=== PATIENT | male | born 1985 | race African-American/Black ===

== ENCOUNTER 2016-04-25 | Emergency (ER) | payer BC ==
--- NOTE | 2016-04-25 08:45 | ED ---
General Adult HPI - General Chief complaint: Dental/Oral Stated complaint: Neck pain Time Seen by Provider: 04/25/16 08:34 Source: patient, RN notes reviewed Mode of arrival: ambulatory Limitations: no limitations - History of Present Illness Initial comments: Patient is a 30-year-old male who presents emergency room today with chief complaint of increased dental pain. He does admit that he's had a fractured tooth for several months. He states that yesterday he was eating another piece broke off. He states she's noticed increased swelling to the right side of his lower jaw and neck area. Does admit that he's had a funny taste in his mouth at times. Patient also admits that his noticed that he's had some increased crusting and drainage coming from his eyes bilaterally in the morning. He denies any other complaints or associated symptoms. Patient denies any recent fever, chills, shortness of breath, chest pain, back pain, abdominal pain, nausea or vomiting, numbness or tingling, dysuria or hematuria, constipation or diarrhea, headaches or visual changes, or any other complaints. - Related Data Home Medications Medication Instructions Recorded Confirmed D-Methorphan/Acetamin/Doxylamn 2 cap PO Q6H PRN 02/25/16 02/25/16 [Vicks Nyquil Liquicaps] D-Methorphan/PE/Acetaminophen 2 cap PO Q6H PRN 02/25/16 02/25/16 [Vicks Dayquil Liquicaps] Previous Rx's Medication Instructions Recorded Albuterol Inhaler [Ventolin Hfa 1 - 2 puff INHALATION Q4-6H PRN #1 02/25/16 Inhaler] inhaler predniSONE 40 mg PO DAILY 5 Days 02/25/16 Amoxicillin/Potassium Clav 1 each PO Q12HR #20 tab 04/25/16 [Augmentin 875-125 Tablet] Tobramycin 0.3% Ophth Soln [Tobrex 1 - 2 drop BOTH EYES QID 7 Days 04/25/16 0.3% Ophth Soln] Allergies Allergy/AdvReac Type Severity Reaction Status Date / Time No Known Allergies Allergy Verified 02/25/16 08:09 Review of Systems ROS Statement: Those systems with pertinent positive or pertinent negative responses have been documented in the HPI. ROS Other: All systems not noted in ROS Statement are negative. Past Medical History Past Medical History: Asthma History of Any Multi-Drug Resistant Organisms: MRSA Date of last positivie culture/infection: 2014 MDRO Source:: leg Past Surgical History: Back Surgery Past Psychological History: No Psychological Hx Reported Smoking Status: Current every day smoker Past Alcohol Use History: Occasional Past Drug Use History: None Reported General Exam - General Exam Comments Initial Comments: General: The patient is awake and alert, in no distress, and does not appear acutely ill. Eye: Pupils are equal, round and reactive to light, extra-ocular movements are intact. No nystagmus. There is normal conjunctiva bilaterally. No signs of icterus. Ears, nose, mouth and throat: There are moist mucous membranes and no oral lesions. Patient tender to palpation over the upper gum line over tooth #3 and 4. No sign of abscess. Uvula midline. Patient swallows without difficult to. Neck: The neck is supple, there is no tenderness or JVD. Cardiovascular: There is a regular rate and rhythm. No murmur, rub or gallop is appreciated. Respiratory: Lungs are clear to auscultation, respirations are non-labored, breath sounds are equal. No wheezes, stridor, rales, or rhonchi. Musculoskeletal: Normal ROM, no tenderness. Strength 5/5. Sensation intact. Pulses equal bilaterally 2+. Neurological: A&O x 3. CN II-XII intact, There are no obvious motor or sensory deficits. Coordination appears grossly intact. Speech is normal. Skin: Skin is warm and dry and no rashes or lesions are noted. Psychiatric: Cooperative, appropriate mood & affect, normal judgment. Limitations: no limitations Course Vital Signs 04/25/16 08:35 Temperature 98.1 F Pulse Rate 75 Respiratory 20 Rate Blood Pressure 140/89 O2 Sat by Pulse 99 Oximetry Medical Decision Making - Medical Decision Making Patient advised use antibiotics follow-up dentist over the next 2 days. Patient advised to use antibiotic drops to his eyes if symptoms become more red irritated. At this time no sign of conjunctivitis. Patient is advised return here to emergency room if swelling to the jaw and neck becomes worse or for any fevers or any other concerns. Disposition Clinical Impression: Pain, dental Disposition: HOME SELF-CARE Condition: Good Instructions: Toothache (ED) Additional Instructions: Please use medication as discussed. Please follow-up with family doctor in the next 2 days of symptoms have not improved. Please follow up with dentist as discussed over the next week. Please return to emergency room if the symptoms increase or worsen or for any other concerns. Prescriptions: Amoxicillin/Potassium Clav [Augmentin 875-125 Tablet] 1 each PO Q12HR #20 tab Tobramycin 0.3% Ophth Soln [Tobrex 0.3% Ophth Soln] 1 - 2 drop BOTH EYES QID 7 Days Referrals: None,Stated [Primary Care Provider] - 1-2 days Anthony Martin MD [STAFF PHYSICIAN] - 1-2 days Time of Disposition: 08:44
== END 2016-04-25 09:10 | disposition home or self-care (01) ==
CPT/HCPCS: 99283

== ENCOUNTER 2016-10-16 18:38 | Emergency (ER) | payer BC, OTHER ==
[2016-10-16 19:07] VITALS: BP 135/58; PULSE 90; RESP 17; TEMP 98.5
[2016-10-16] MEDS ORDERED: ACETAMINOPHEN TAB 325 MG TAB PO STA (19:18)
--- NOTE | 2016-10-16 19:27 | ED ---
ENT HPI - General Chief complaint: ENT Stated complaint: sick Time Seen by Provider: 10/16/16 19:09 Source: patient Mode of arrival: ambulatory Limitations: no limitations - History of Present Illness Initial comments: Patient is a 31-year-old male presenting to the emergency department with chief complaint of "just not feeling good." Patient states that he was at work and at 4 PM this afternoon he developed a headache, had a sore throat, and developed some chills. Patient states he feels very weak. In addition, patient states he got bit by a bug in the back of his neck last week and has a bump. Patient states the bug stung him and he flicked it with his hand. Patient states until 4 PM today he was feeling fine. Patient denies recent antibiotic use for last 30 days. MD complaint: sore throat Onset/Timin -: hour(s) Severity: moderate Severity scale (1-10): 7 Quality: burning Consistency: constant Improves with: none Worsens with: swallowing Associated Symptoms: pain with swallowing - Related Data Home Medications Medication Instructions Recorded Confirmed D-Methorphan/PE/Acetaminophen 2 cap PO Q6H PRN 02/25/16 02/25/16 [Vicks Dayquil Liquicaps] Dm/Acetaminophen/Doxylamine [Vicks 2 cap PO Q6H PRN 02/25/16 02/25/16 Nyquil Liquicaps] Previous Rx's Medication Instructions Recorded Albuterol Inhaler [Ventolin Hfa 1 - 2 puff INHALATION Q4-6H PRN #1 02/25/16 Inhaler] inhaler predniSONE 40 mg PO DAILY 5 Days 02/25/16 Amoxicillin/Potassium Clav 1 each PO Q12HR #20 tab 04/25/16 [Augmentin 875-125 Tablet] Tobramycin 0.3% Ophth Soln [Tobrex 1 - 2 drop BOTH EYES QID 7 Days 04/25/16 0.3% Ophth Soln] Allergies Allergy/AdvReac Type Severity Reaction Status Date / Time No Known Allergies Allergy Verified 02/25/16 08:09 Review of Systems ROS Statement: Those systems with pertinent positive or pertinent negative responses have been documented in the HPI. ROS Other: All systems not noted in ROS Statement are negative. Past Medical History Past Medical History: Asthma History of Any Multi-Drug Resistant Organisms: MRSA Date of last positivie culture/infection: 2014 MDRO Source:: leg Past Surgical History: Back Surgery Past Psychological History: No Psychological Hx Reported Smoking Status: Current every day smoker Past Alcohol Use History: Occasional Past Drug Use History: None Reported General Exam Limitations: no limitations General appearance: alert, in no apparent distress Head exam: Present: atraumatic, normocephalic, normal inspection Eye exam: Present: normal appearance. Absent: PERRL, scleral icterus, conjunctival injection, periorbital swelling, periorbital tenderness ENT exam: Present: mucous membranes moist, TM's normal bilaterally, normal external ear exam Expanded Throat exam: other (Posterior pharynx erythema). negative: tonsillar erythema, tonsillomegaly, tonsillar exudate, R peritonsillar mass, L peritonsillar mass Neck exam: Present: normal inspection, tenderness, full ROM, lymphadenopathy ( Cervical) Respiratory exam: Present: normal lung sounds bilaterally. Absent: respiratory distress, wheezes, rales, rhonchi, stridor, chest wall tenderness, accessory muscle use Cardiovascular Exam: Present: regular rate, normal rhythm, normal heart sounds. Absent: systolic murmur GI/Abdominal exam: Present: soft, normal bowel sounds. Absent: tenderness Extremities exam: Present: normal inspection, full ROM, normal capillary refill. Absent: tenderness Back exam: Present: normal inspection, full ROM. Absent: tenderness, CVA tenderness (R), CVA tenderness (L), paraspinal tenderness, vertebral tenderness , rash noted Neurological exam: Present: alert, oriented X3, normal gait, other (No focal deficits). Absent: motor sensory deficit Psychiatric exam: Present: normal affect, normal mood Skin exam: Present: warm, dry, intact, normal color, other (No palpable abscess noted to posterior neck and no erythema noted) Course Vital Signs 10/16/16 10/16/16 19:04 20:05 Temperature 98.5 F 98.5 F Pulse Rate 90 90 Respiratory 17 17 Rate Blood Pressure 135/58 135/58 O2 Sat by Pulse 99 99 Oximetry Medical Decision Making - Medical Decision Making Patient is a 31-year-old male presenting with chief complaint of sore throat suspect secondary to viral pharyngitis. Strep screen negative. Patient instructed to continue soft foods and cold foods for comfort. Patient instructed to continue Tylenol or Motrin for pain. Patient instructed to return to the emergency department with any new or worsening symptoms. Patient agrees to treatment plan. Discharge instructions and return parameters reviewed. - Lab Data Lab Results 10/16/16 Range/Units 19:10 Group A Strep Rapid Negative (Negative) Disposition Clinical Impression: Pharyngitis Disposition: HOME SELF-CARE Condition: Good Instructions: Pharyngitis (ED) Additional Instructions: Continue soft foods and cold foods for throat comfort. Continue Tylenol or Motrin for pain. May use throat lozenges. Please follow-up with primary care physician as directed. Please return to the emergency department with any new or worsening symptoms. Referrals: None,Stated [Primary Care Provider] - 1-2 days Time of Disposition: 20:00
== END 2016-10-16 20:04 | disposition home or self-care (01) ==
LOC: EC 18:38
DX: J02.9 Acute pharyngitis, unspecified (principal); Z86.14 Personal history of Methicillin resistant Staphylococcus aureus infection; F17.200 Nicotine dependence, unspecified, uncomplicated
CPT/HCPCS: 87081; 87430; 99283

== ENCOUNTER 2017-01-11 07:52 | Emergency (ER) | payer OTHER ==
[2017-01-11 07:57] VITALS: BP 138/87; PULSE 90; RESP 16; TEMP 97.4
--- NOTE | 2017-01-11 08:11 | ED ---
General Adult HPI - General Chief complaint: Dental/Oral Stated complaint: DENTAL PAIN Time Seen by Provider: 01/11/17 07:57 Source: patient, RN notes reviewed Mode of arrival: ambulatory Limitations: no limitations - History of Present Illness Initial comments: 31-year-old male presents emergency Department chief complaint of dental pain. Patient states he's had this for the past 2 days he has not taken any medication for. He called her dentist and was informed to get up on antibiotics and he'll be following up within this week. Patient states he has felt feverish but he has not taken a temperature. Patient states that he has no pain radiating into the neck and there is no difficulty opening or closing the mouth. Patient denies any pus or drainage from the area. Patient was concerned due to his comes complaint of pains without that he should be evaluated in he needs antibiotics. Patient denies any recent shortness of breath, chest pain, back pain, abdominal pain, nausea vomiting, numbness or tingling, dysuria or hematuria, constipation or diarrhea, headaches or visual changes, or any other current symptoms. - Related Data Home Medications Medication Instructions Recorded Confirmed D-Methorphan/PE/Acetaminophen 2 cap PO Q6H PRN 02/25/16 02/25/16 [Vicks Dayquil Liquicaps] Dm/Acetaminophen/Doxylamine [Vicks 2 cap PO Q6H PRN 02/25/16 02/25/16 Nyquil Liquicaps] Previous Rx's Medication Instructions Recorded Albuterol Inhaler [Ventolin Hfa 1 - 2 puff INHALATION Q4-6H PRN #1 02/25/16 Inhaler] inhaler predniSONE 40 mg PO DAILY 5 Days 02/25/16 Amoxicillin/Potassium Clav 1 each PO Q12HR #20 tab 04/25/16 [Augmentin 875-125 Tablet] Tobramycin 0.3% Ophth Soln [Tobrex 1 - 2 drop BOTH EYES QID 7 Days 04/25/16 0.3% Ophth Soln] Ibuprofen [Motrin] 600 mg PO Q6HR PRN #20 tab 01/11/17 Penicillin V Potassium [Pen Vee K] 500 mg PO TID #40 tab 01/11/17 Allergies Allergy/AdvReac Type Severity Reaction Status Date / Time No Known Allergies Allergy Verified 01/11/17 07:57 Review of Systems ROS Statement: Those systems with pertinent positive or pertinent negative responses have been documented in the HPI. ROS Other: All systems not noted in ROS Statement are negative. Past Medical History Past Medical History: Asthma Additional Past Medical History / Comment(s): back pain History of Any Multi-Drug Resistant Organisms: MRSA Date of last positivie culture/infection: 2014 MDRO Source:: leg Past Surgical History: Back Surgery Past Psychological History: No Psychological Hx Reported Smoking Status: Current every day smoker Past Alcohol Use History: Occasional Past Drug Use History: Marijuana General Exam Limitations: no limitations General appearance: alert, in no apparent distress Head exam: Present: atraumatic, normocephalic, normal inspection Eye exam: Present: normal appearance, PERRL, EOMI. Absent: scleral icterus, conjunctival injection, periorbital swelling ENT exam: Present: normal exam, mucous membranes moist, other (Patient does appear to have fracture to tooth #2 with dental tenderness no sign of abscess noted) Neck exam: Present: normal inspection. Absent: tenderness, meningismus, lymphadenopathy Respiratory exam: Present: normal lung sounds bilaterally. Absent: respiratory distress, wheezes, rales, rhonchi, stridor Cardiovascular Exam: Present: regular rate, normal rhythm, normal heart sounds. Absent: systolic murmur, diastolic murmur, rubs, gallop, clicks Neurological exam: Present: alert, oriented X3 Psychiatric exam: Present: normal affect, normal mood Skin exam: Present: warm, dry, intact, normal color. Absent: rash Course Vital Signs 01/11/17 07:54 Temperature 97.4 F L Pulse Rate 90 Respiratory 16 Rate Blood Pressure 138/87 O2 Sat by Pulse 100 Oximetry Medical Decision Making - Medical Decision Making 31-year-old male presents emergency room chief complaint of right-sided dental pain. At this time we will start the patient on antibiotics and Motrin. We discussed follow-up with his dentist and return parameters. Patient stated that he understood and all questions have been answered. He'll be discharged Disposition Clinical Impression: Dental caries, Fracture of tooth Disposition: HOME SELF-CARE Condition: Stable Instructions: Dental Caries (ED) Additional Instructions: Please use medication as discussed. Please follow up with family doctor if symptoms have not improved over the next two days. Please return to the emergency room if your symptoms increase or worsen or for any other concerns. [facility] [address] [place] [address] [phone] (existing clients only) For new clients: [phone] 1st consult: $50 (includes Xrays) Usually 30% less then private dentist for visits after. [employer] Have to pay $50 for Xrays anmd rest is covered. [phone] Prescriptions: Ibuprofen [Motrin] 600 mg PO Q6HR PRN #20 tab PRN Reason: Pain Penicillin V Potassium [Pen Vee K] 500 mg PO TID #40 tab Referrals: Chanle Bolaños MD [STAFF PHYSICIAN] - 1-2 days Time of Disposition: 08:10
== END 2017-01-11 08:29 | disposition home or self-care (01) ==
LOC: EC 07:52
DX: S02.5XXA Fracture of tooth (traumatic), initial encounter for closed fracture (principal); K02.9 Dental caries, unspecified; R50.9 Fever, unspecified; F17.200 Nicotine dependence, unspecified, uncomplicated; Z86.14 Personal history of Methicillin resistant Staphylococcus aureus infection
CPT/HCPCS: 99282

== ENCOUNTER 2017-04-27 12:57 | Emergency (ER) | payer OTHER ==
[2017-04-27 13:31] VITALS: BP 121/60; PULSE 72; RESP 18; TEMP 98.8
--- NOTE | 2017-04-27 13:36 | ED ---
General Adult HPI - General Chief complaint: Dental/Oral Stated complaint: Jaw Pain/Swelling, tooth pain Time Seen by Provider: 04/27/17 13:26 Source: patient, RN notes reviewed Mode of arrival: ambulatory Limitations: no limitations - History of Present Illness Initial comments: 31-year-old male presents to the emergency department with a chief complaint of right-sided dental pain. He had this back on the 2nd he developed some dental discomfort he saw the dentist and was placed on antibiotics he did not return to have the tooth pulled and now he states that SWELLING pain and improved he finishes antibiotics. Then today he noticed some swelling and pain to the right upper jaw. He states any air moving by it causes some discomfort. He denies any pain into the neck or any difficulty opening or closing the mouth. They were concerned due to his continued discomfort so without that they should be seen. He's thinking he needs any prescription for antibiotics.Patient denies any recent fever, chills, shortness of breath, chest pain, back pain, abdominal pain, nausea vomiting, numbness or tingling, dysuria or hematuria, constipation or diarrhea, headaches or visual changes, or any other current symptoms. - Related Data Previous Rx's Medication Instructions Recorded Ibuprofen [Motrin] 600 mg PO Q6HR PRN #20 tab 01/11/17 Penicillin V Potassium [Pen Vee K] 500 mg PO TID #40 tab 01/11/17 Clindamycin [Cleocin] 450 mg PO TID #90 cap 02/12/17 Allergies Allergy/AdvReac Type Severity Reaction Status Date / Time No Known Allergies Allergy Verified 04/27/17 13:31 Review of Systems ROS Statement: Those systems with pertinent positive or pertinent negative responses have been documented in the HPI. ROS Other: All systems not noted in ROS Statement are negative. Past Medical History Past Medical History: Asthma Additional Past Medical History / Comment(s): back pain History of Any Multi-Drug Resistant Organisms: MRSA Date of last positivie culture/infection: 2014 MDRO Source:: leg Past Surgical History: Back Surgery Past Psychological History: No Psychological Hx Reported Smoking Status: Current every day smoker Past Alcohol Use History: Occasional Past Drug Use History: Marijuana General Exam Limitations: no limitations General appearance: alert, in no apparent distress Eye exam: Present: normal appearance, PERRL, EOMI. Absent: scleral icterus, conjunctival injection, periorbital swelling ENT exam: Present: normal exam, mucous membranes moist, other (Patient does appear to have a cavity to tooth #5) Neck exam: Present: normal inspection. Absent: tenderness, meningismus, lymphadenopathy Respiratory exam: Present: normal lung sounds bilaterally. Absent: respiratory distress, wheezes, rales, rhonchi, stridor Cardiovascular Exam: Present: regular rate, normal rhythm, normal heart sounds. Absent: systolic murmur, diastolic murmur, rubs, gallop, clicks Extremities exam: Present: normal inspection, full ROM, normal capillary refill. Absent: tenderness, pedal edema, joint swelling, calf tenderness Back exam: Present: normal inspection Neurological exam: Present: alert, oriented X3, CN II-XII intact Psychiatric exam: Present: normal affect, normal mood Skin exam: Present: warm, dry, intact, normal color. Absent: rash Course Vital Signs 04/27/17 13:27 Temperature 98.8 F Pulse Rate 72 Respiratory 18 Rate Blood Pressure 121/60 O2 Sat by Pulse 99 Oximetry Medical Decision Making - Medical Decision Making 31-year-old male presents emergency department with a chief complaint of dental pain. At that was corrected at this time. Patient had on clindamycin. Discussed follow-up with dentist return parameters all questions. He stated the Dave is significant this plan. All questions were answered. He'll be discharged. Disposition Clinical Impression: Dental caries Disposition: HOME SELF-CARE Condition: Stable Instructions: Dental Caries (ED) Additional Instructions: Please use medication as discussed. Please follow up with family doctor if symptoms have not improved over the next two days. Please return to the emergency room if your symptoms increase or worsen or for any other concerns. [facility] [place] [address] [phone] (existing clients only) For new clients: [phone] 1st consult: $50 (includes Xrays) Usually 30% less then private dentist for visits after. [employer] Have to pay $50 for Xrays anmd rest is covered. [phone] Referrals: Dominic Piña MD [REFERRING] - 1-2 days Time of Disposition: 13:35
== END 2017-04-27 13:51 | disposition home or self-care (01) ==
LOC: EC 12:57
DX: K02.9 Dental caries, unspecified (principal); F17.200 Nicotine dependence, unspecified, uncomplicated; Z86.14 Personal history of Methicillin resistant Staphylococcus aureus infection
CPT/HCPCS: 99282

== ENCOUNTER 2017-10-27 09:44 | Emergency (ER) | payer OTHER ==
[2017-10-27 10:04] VITALS: BP 121/80; PULSE 75; RESP 18; TEMP 98.9
--- NOTE | 2017-10-27 10:29 | ED ---
General Adult HPI - General Chief complaint: Dental/Oral Stated complaint: Dental Time Seen by Provider: 10/27/17 10:00 Source: patient, RN notes reviewed Mode of arrival: ambulatory Limitations: no limitations - History of Present Illness Initial comments: 32-year-old male presented from it chief complaint of dental pain. Patient has dental caries and erosion right upper and left upper. There are some worsening of the symptoms states that he has facial pain and facial swelling. He states he does not feel well from his sister fevers. Patient states that he has not seen a dentist recently. Patient denies any headache, dizziness. Patient reports that he is not having drug ALLERGIES. Patient denies any sore throat, difficulty swallowing - Related Data Previous Rx's Medication Instructions Recorded Ibuprofen [Motrin] 600 mg PO Q8HR PRN #30 tab 10/27/17 Penicillin V Potassium [Pen Vee K] 500 mg PO QID #40 tablet 10/27/17 Allergies Allergy/AdvReac Type Severity Reaction Status Date / Time No Known Allergies Allergy Verified 10/27/17 10:04 Review of Systems ROS Statement: Those systems with pertinent positive or pertinent negative responses have been documented in the HPI. ROS Other: All systems not noted in ROS Statement are negative. Past Medical History Past Medical History: Asthma Additional Past Medical History / Comment(s): back pain History of Any Multi-Drug Resistant Organisms: MRSA Date of last positivie culture/infection: 2014 MDRO Source:: leg Past Surgical History: Back Surgery Past Psychological History: No Psychological Hx Reported Smoking Status: Current every day smoker Past Alcohol Use History: Occasional Past Drug Use History: Marijuana General Exam Limitations: no limitations General appearance: alert, in no apparent distress Head exam: Present: atraumatic, normocephalic, normal inspection Eye exam: Present: normal appearance, PERRL, EOMI. Absent: scleral icterus, conjunctival injection, periorbital swelling ENT exam: Present: mucous membranes moist, TM's normal bilaterally, normal external ear exam. Absent: normal exam, normal oropharynx (Dental caries noted right upper and left upper) Neck exam: Present: normal inspection, full ROM. Absent: tenderness, meningismus, lymphadenopathy Respiratory exam: Present: normal lung sounds bilaterally. Absent: respiratory distress, wheezes, rales, rhonchi, stridor Cardiovascular Exam: Present: regular rate, normal rhythm, normal heart sounds. Absent: systolic murmur, diastolic murmur, rubs, gallop, clicks Course Vital Signs 10/27/17 10:02 Temperature 98.9 F Pulse Rate 75 Respiratory 18 Rate Blood Pressure 121/80 O2 Sat by Pulse 96 Oximetry Medical Decision Making - Medical Decision Making 32-year-old male has multiple dental caries and is having increasing pain concern for underlying dental infection dental abscess. Patient will be started on penicillin and ibuprofen. He is advised follow-up with the dentist and return for any worsening symptoms. Disposition Clinical Impression: Dental caries, Dental infection Disposition: HOME SELF-CARE Condition: Stable Instructions: Dental Abscess (ED) Additional Instructions: Please return to the Emergency Department if symptoms worsen or any other concerns. Prescriptions: Ibuprofen [Motrin] 600 mg PO Q8HR PRN #30 tab PRN Reason: Pain Penicillin V Potassium [Pen Vee K] 500 mg PO QID #40 tablet Is patient prescribed a controlled substance at d/c from ED?: No Referrals: None,Stated [Primary Care Provider] - 1-2 days Time of Disposition: 10:29
== END 2017-10-27 10:38 | disposition home or self-care (01) ==
LOC: EC 09:44
DX: K04.7 Periapical abscess without sinus (principal); K02.9 Dental caries, unspecified; F17.200 Nicotine dependence, unspecified, uncomplicated; Z86.14 Personal history of Methicillin resistant Staphylococcus aureus infection
CPT/HCPCS: 99282

== ENCOUNTER 2018-04-02 07:40 | Emergency (ER) | payer OTHER ==
[2018-04-02 07:50] VITALS: BP 131/65; PULSE 90; RESP 18; TEMP 98.2
[2018-04-02] MEDS ORDERED: ACET/COD 300 MG/30 MG STARTER PACK 6 TAB BTL PO STA (08:46)
--- NOTE | 2018-04-02 08:46 | ED ---
ENT HPI - General Chief complaint: ENT Stated complaint: Tooth Pain Time Seen by Provider: 04/02/18 08:09 Source: patient, RN notes reviewed Mode of arrival: ambulatory Limitations: no limitations - History of Present Illness Initial comments: 32-year-old male present emergency from chief complaint of right upper dental pain. Patient states he has a known tooth. He's had problems with infections in the past. He has not follow-up with a dentist as directed. Patient reports no facial swelling no fever no chills no headache at this time states she's had intermittent headaches. Patient states that the pain is sharp shooting pain. Patient has NO KNOWN DRUG ALLERGIES. Patient denies any sore throat, difficulty swallowing. - Related Data Previous Rx's Medication Instructions Recorded Ibuprofen [Motrin] 600 mg PO Q8HR PRN #30 tab 10/27/17 Penicillin V Potassium [Pen Vee K] 500 mg PO QID #40 tablet 10/27/17 Ibuprofen [Motrin] 600 mg PO Q8HR PRN #30 tab 04/02/18 Penicillin V Potassium [Pen Vee K] 500 mg PO QID #40 tablet 04/02/18 Allergies Allergy/AdvReac Type Severity Reaction Status Date / Time No Known Allergies Allergy Verified 04/02/18 07:50 Review of Systems ROS Statement: Those systems with pertinent positive or pertinent negative responses have been documented in the HPI. ROS Other: All systems not noted in ROS Statement are negative. Past Medical History Past Medical History: Asthma Additional Past Medical History / Comment(s): back pain History of Any Multi-Drug Resistant Organisms: MRSA Date of last positivie culture/infection: 2014 MDRO Source:: leg Past Surgical History: Back Surgery Past Psychological History: No Psychological Hx Reported Smoking Status: Current every day smoker Past Alcohol Use History: Occasional Past Drug Use History: Marijuana General Exam Limitations: no limitations General appearance: alert, in no apparent distress Head exam: Present: atraumatic, normocephalic, normal inspection Eye exam: Present: normal appearance, PERRL, EOMI. Absent: scleral icterus, conjunctival injection, periorbital swelling ENT exam: Present: mucous membranes moist, TM's normal bilaterally, normal external ear exam. Absent: normal oropharynx (Dental fracture #3, large dental Nilam associated no drainable abscess) Neck exam: Present: normal inspection, full ROM. Absent: tenderness, meningismus, lymphadenopathy Respiratory exam: Present: normal lung sounds bilaterally. Absent: respiratory distress, wheezes, rales, rhonchi, stridor Cardiovascular Exam: Present: regular rate, normal rhythm, normal heart sounds. Absent: systolic murmur, diastolic murmur, rubs, gallop, clicks Course Vital Signs 04/02/18 07:48 Temperature 98.2 F Pulse Rate 90 Respiratory 18 Rate Blood Pressure 131/65 O2 Sat by Pulse 99 Oximetry Medical Decision Making - Medical Decision Making 32-year-old male presented for dental pain. Patient has dental fracture and underlying Dental infection. Patient was started on penicillin, ibuprofen and given a starter pack with Tylenol codeine. Patient will follow-up with the dentist as directed and return for any worsening symptoms. Patient does understand if he does not follow-up this will be a recurrent issue. Disposition Clinical Impression: Dental infection, Dental caries Disposition: HOME SELF-CARE Condition: Stable Instructions: Toothache (ED) Additional Instructions: Please return to the Emergency Department if symptoms worsen or any other concerns. Prescriptions: Ibuprofen [Motrin] 600 mg PO Q8HR PRN #30 tab PRN Reason: Pain Penicillin V Potassium [Pen Vee K] 500 mg PO QID #40 tablet Is patient prescribed a controlled substance at d/c from ED?: No Referrals: None,Stated [Primary Care Provider] - 1-2 days Time of Disposition: 08:46
== END 2018-04-02 08:56 | disposition home or self-care (01) ==
LOC: EC 07:40
DX: K02.9 Dental caries, unspecified (principal); K04.7 Periapical abscess without sinus; F17.200 Nicotine dependence, unspecified, uncomplicated; Z86.14 Personal history of Methicillin resistant Staphylococcus aureus infection
CPT/HCPCS: 99282

== ENCOUNTER 2018-07-07 10:46 | Emergency (ER) | payer OTHER ==
[2018-07-07 11:12] VITALS: BP 116/71; PULSE 73; RESP 16; TEMP 97.8
--- NOTE | 2018-07-07 11:42 | ED ---
General Adult HPI - General Chief complaint: Dental/Oral Stated complaint: Tooth ache Time Seen by Provider: 07/07/18 11:15 Source: patient, RN notes reviewed Mode of arrival: ambulatory Limitations: no limitations - History of Present Illness Initial comments: Patient is a pleasant 32-year-old male presenting to the emergency Department with complaints of toothache. Patient has had intermittent problems with this over the past several years. Patient states symptoms started to get worse couple of days ago. Patient just got his insurance back. Patient has plans to see a dentist and is going to call later today. No swelling. No fevers. Patient has several areas however the most significant one is right upper posterior tooth. No dyspnea. No problems swallowing or eating. - Related Data Previous Rx's Medication Instructions Recorded Penicillin V Potassium [Pen Vee K] 500 mg PO QID #40 tablet 07/07/18 Allergies Allergy/AdvReac Type Severity Reaction Status Date / Time No Known Allergies Allergy Verified 07/07/18 11:35 Review of Systems ROS Statement: Those systems with pertinent positive or pertinent negative responses have been documented in the HPI. Constitutional: Denies: fever Eyes: Denies: eye pain ENT: Reports: dental pain. Denies: ear pain, throat pain Respiratory: Denies: dyspnea Neurological: Denies: headache Past Medical History Past Medical History: Asthma Additional Past Medical History / Comment(s): back pain History of Any Multi-Drug Resistant Organisms: MRSA Date of last positivie culture/infection: 2014 MDRO Source:: leg Past Surgical History: Back Surgery Past Psychological History: No Psychological Hx Reported Smoking Status: Current every day smoker Past Alcohol Use History: Occasional Past Drug Use History: Marijuana General Exam Limitations: no limitations General appearance: alert, in no apparent distress Head exam: Present: atraumatic ENT exam: Present: normal oropharynx, other (Right second premolar with significant decay and some tenderness. No significant swelling or erythema.) Neck exam: Present: normal inspection Respiratory exam: Present: normal lung sounds bilaterally Cardiovascular Exam: Present: regular rate, normal rhythm Neurological exam: Present: alert Psychiatric exam: Present: normal affect, normal mood Skin exam: Present: normal color Course Vital Signs 07/07/18 11:10 Temperature 97.8 F Pulse Rate 73 Respiratory 16 Rate Blood Pressure 116/71 O2 Sat by Pulse 99 Oximetry Disposition Clinical Impression: Toothache Disposition: HOME SELF-CARE Condition: Stable Instructions (If sedation given, give patient instructions): Dental Caries (ED), Toothache (ED) Additional Instructions: Please follow-up with dentist in the next couple of days for recheck. Please provide list of dental clinics. Return for increased pain, swelling, fevers, worsening or change in symptoms or other concerns. Also follow-up with primary care physician. Prescriptions: Penicillin V Potassium [Pen Vee K] 500 mg PO QID #40 tablet Is patient prescribed a controlled substance at d/c from ED?: No Referrals: Christofer Vaughn MD [STAFF PHYSICIAN] - 1-2 days Time of Disposition: 11:42
== END 2018-07-07 11:54 | disposition home or self-care (01) ==
LOC: EC 10:46
DX: K08.89 Other specified disorders of teeth and supporting structures (principal); K02.9 Dental caries, unspecified; F17.200 Nicotine dependence, unspecified, uncomplicated; Z86.14 Personal history of Methicillin resistant Staphylococcus aureus infection
CPT/HCPCS: 99282

== ENCOUNTER 2019-01-11 17:10 | Emergency (ER) | payer OTHER ==
[2019-01-11 18:22] VITALS: BP 126/80; PULSE 61; RESP 18; TEMP 98.1
--- NOTE | 2019-01-11 18:53 | ED ---
General Adult HPI - General Chief complaint: Skin/Abscess/Foreign Body Stated complaint: Chemical reaction-[facility] Time Seen by Provider: 01/11/19 18:23 Source: patient, RN notes reviewed, old records reviewed Mode of arrival: ambulatory Limitations: no limitations - History of Present Illness Initial comments: 33 -year-old male patient presents ED chief complaint dental pain significantly complaint of rash on forearms. Patient reports that he does have a broken tooth has been giving pain for approximately one week. Request referral to dentist and antibiotics. 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 Denies any other complaints. Systemic: Pt denies fatigue, fever/chills. Pt denies weakness, night sweats, weight loss. Neuro: Pt denies headache, visual disturbances, syncope or pre-syncope. HEENT: Pt denies ocular discharge or irritation, otalgia, rhinorrhea, pharyngitis or notable lymphadenopathy. Cardiopulmonary: Pt denies chest pain, SOB, heart palpitations, dyspnea on exertion. Abdominal/GI: Pt denies abdominal pain, n/v/d. : Pt denies dysuria, burning w/ urination, frequency/urgency. Denies new onset urinary or bowel incontinence. MSK: Pt denies myalgia, loss of strength or function in extremities. Neuro: Pt denies new onset weakness, paresthesias. - Related Data Previous Rx's Medication Instructions Recorded Penicillin V Potassium [Pen Vee K] 500 mg PO QID #40 tablet 07/07/18 Amoxicillin/Potassium Clav 1 each PO Q12HR 7 Days #14 tab 01/11/19 [Augmentin 875-125 Tablet] Hydrocortisone Cream 1 applic TOPICAL BID 7 Days #1 01/11/19 [Hydrocortisone 1% Cream] cream..g. Allergies Allergy/AdvReac Type Severity Reaction Status Date / Time No Known Allergies Allergy Verified 01/11/19 18:22 Review of Systems ROS Statement: Those systems with pertinent positive or pertinent negative responses have been documented in the HPI. ROS Other: All systems not noted in ROS Statement are negative. Past Medical History Past Medical History: Asthma Additional Past Medical History / Comment(s): back pain History of Any Multi-Drug Resistant Organisms: MRSA Date of last positivie culture/infection: 2014 MDRO Source:: leg Past Surgical History: Back Surgery Past Psychological History: No Psychological Hx Reported Smoking Status: Current every day smoker Past Alcohol Use History: Occasional Past Drug Use History: Marijuana General Exam - General Exam Comments Initial Comments: Constitutional: NAD, AOX3, Pt has pleasant affect. HEENT: NC/AT, trachea midline, neck supple, no lymphadenopathy. Posterior pharynx non erythematous, without exudates. External ears appear normal, without discharge. Mucous membranes moist. Eyes PERRLA, EOM intact. There is no scleral icterus. No pallor noted. Broken tooth of mild amount of saline as noted on right upper molar region. No drainable abscess. Cardiopulmonary: RRR, no murmurs, rubs or gallops, no JVD noted. Lungs CTAB in anterior and posterior saravia. No peripheral edema. Abdominal exam: Abdomen soft and non-distended. Abdomen non-tender to palpation in all 4 quadrants. Bowel sounds active in LLQ. No hepatosplenomegaly. No ecchymosis Neuro: CN II-XII grossly intact. No nuchal rigidity. No raccon eyes, no burgess sign, no hemotympanum. No cervical spinal tenderness. MSK: No posterior calf tenderness bilaterally, homans sign negative bilaterally. Posterior tibialis and radial pulse +2 bilaterally. Sensation intact in upper and lower extremities. Full active ROM in upper and lower extremities, 5/5 stregnth. Derm: Contact dermatitis noted on forearms bilaterally. Mild. Limitations: no limitations Course Vital Signs 01/11/19 18:20 Temperature 98.1 F Pulse Rate 61 Respiratory 18 Rate Blood Pressure 126/80 O2 Sat by Pulse 100 Oximetry Medical Decision Making - Medical Decision Making 32-year-old male patient in [place] chief complaint of rash and volar aspect of forearms and dental pain. Patient vital signs stable, afebrile. Physical exam displayed a broken tooth with mild amount of erythema no drainage no abscess. Mild dermatitis and volar aspect of forearms. Patient be discharged with advice for dental pain and topical steroid for contact dermatitis. Case discussed with Dr. Saab, Disposition Clinical Impression: Pain, dental, Contact dermatitis Disposition: HOME SELF-CARE Condition: Stable Instructions (If sedation given, give patient instructions): Toothache (ED), Contact Dermatitis (ED) Additional Instructions: Patient to adhere to previously discussed treatment plan and will take medication(s) as directed. Patient to follow up with PCP in 1-2 days. Patient to return to ED if symptoms do not improve. Taken box as directed. Use topical steroid. Follow-up with primary care brother tomorrow. Return to ER condition worsens. Follow with dentist as soon as possible. Prescriptions: Amoxicillin/Potassium Clav [Augmentin 875-125 Tablet] 1 each PO Q12HR 7 Days #14 tab Hydrocortisone Cream [Hydrocortisone 1% Cream] 1 applic TOPICAL BID 7 Days #1 cream..g. Is patient prescribed a controlled substance at d/c from ED?: No Referrals: None,Stated [Primary Care Provider] - 1-2 days Kathryn Smith DDS [STAFF PHYSICIAN] - 1-2 days Patricio Gee DDS [STAFF PHYSICIAN] - 1-2 days Johanna Keenan DDS [STAFF PHYSICIAN] - 1-2 days
== END 2019-01-11 19:19 | disposition home or self-care (01) ==
LOC: EC 17:10
DX: L25.9 Unspecified contact dermatitis, unspecified cause (principal); S02.5XXA Fracture of tooth (traumatic), initial encounter for closed fracture; F17.200 Nicotine dependence, unspecified, uncomplicated; Z86.14 Personal history of Methicillin resistant Staphylococcus aureus infection; X58.XXXA Exposure to other specified factors, initial encounter; Y99.0 Civilian activity done for income or pay
CPT/HCPCS: 99283

== ENCOUNTER 2019-10-05 22:47 | Emergency (ER) | payer OTHER ==
[2019-10-05 22:53] VITALS: BP 134/80; PULSE 72; RESP 18; TEMP 98.4
--- NOTE | 2019-10-05 23:52 | XR ---
EXAMINATION TYPE: XR hand complete LT DATE OF EXAM: 10/05/2019 COMPARISON: NONE HISTORY: Laceration TECHNIQUE: 3 views FINDINGS: The metacarpals are intact. I see no evidence of radiopaque foreign body. Joint spaces are fairly normal. There appears to be soft tissue defect anterior to the second and third metacarpals co nsistent with a laceration. The carpal bones are intact. Wrist joint is anatomic. IMPRESSION: There is probably laceration deformity of the anterior hand at the second and third metac arpals. No fracture seen. No sign of a foreign body.
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
[2019-10-06] MEDS ORDERED: CEPHALEXIN 500 MG CAP PO STA (00:58)
[2019-10-06] MEDS ORDERED: TOPICAL SKIN ADHESIVE 1 EACH AMP TOPICAL ONE (00:58)
[2019-10-06] MEDS ORDERED: Acetaminophen-Codeine 300-30mg TAB PO STA (00:58)
[2019-10-06] MEDS ORDERED: CEPHALEXIN 500MG STARTER PACK 4 CAP BTL PO STA (00:58)
[2019-10-06] MEDS ORDERED: ACET/COD 300 MG/30 MG STARTER PACK 6 TAB BTL PO STA (00:58)
== END 2019-10-06 01:17 | disposition home or self-care (01) ==
LOC: EC 22:47
DX: S61.230A Puncture wound without foreign body of right index finger without damage to nail, initial encounter (principal); F17.200 Nicotine dependence, unspecified, uncomplicated; W26.0XXA Contact with knife, initial encounter; Y93.89 Activity, other specified; Z86.14 Personal history of Methicillin resistant Staphylococcus aureus infection
CPT/HCPCS: 99283

== ENCOUNTER 2020-04-17 18:23 | Emergency (ER) | payer OTHER ==
[2020-04-17 18:32] VITALS: PULSE 77
[2020-04-17] MEDS ORDERED: ACET/COD 300 MG/30 MG STARTER PACK 6 TAB BTL PO STA (19:40)
[2020-04-17] MEDS ORDERED: HYDROcodone/APAP 5-325MG 1 EACH TAB PO STA (19:40)
--- NOTE | 2020-04-17 19:40 | ED ---
ENT HPI - General Chief complaint: Dental/Oral Stated complaint: dental infection Time Seen by Provider: 04/17/20 18:46 Source: patient Mode of arrival: ambulatory Limitations: no limitations - History of Present Illness Initial comments: Patient is a 34-year-old male presenting to the emergency Department with complaints of right-sided dental pain has been increasing over the past 3-4 days. Patient is also reporting an increasing headache over the last few days and sinus pressure. Patient states he knows he has 2 fractured teeth one on the right and one on the upper left however he has delayed going to the dentist. Patient denies any fever or chills, no neck pain, no nausea or vomiting. He states he's been trying to take Tylenol Motrin for discomfort but it is not helping. He denies any cough, no nasal congestion. He has no further complaints at this time. Upon arrival to the ER, his vital signs are stable. - Related Data Home Medications Medication Instructions Recorded Confirmed Acetaminophen Tab [Tylenol] 1,500 mg PO Q4-6H PRN 04/17/20 04/17/20 Previous Rx's Medication Instructions Recorded Penicillin V Potassium [Pen Vee K] 500 mg PO QID 7 Days #28 tablet 04/17/20 Allergies Allergy/AdvReac Type Severity Reaction Status Date / Time No Known Allergies Allergy Verified 04/17/20 19:44 Review of Systems ROS Statement: Those systems with pertinent positive or pertinent negative responses have been documented in the HPI. ROS Other: All systems not noted in ROS Statement are negative. Past Medical History Past Medical History: Asthma Additional Past Medical History / Comment(s): back pain History of Any Multi-Drug Resistant Organisms: MRSA Date of last positivie culture/infection: 2014 MDRO Source:: leg Past Surgical History: Back Surgery Past Psychological History: No Psychological Hx Reported Smoking Status: Never smoker Past Alcohol Use History: Occasional Past Drug Use History: Marijuana General Exam - General Exam Comments Initial Comments: GENERAL: Patient is well-developed and well-nourished. Patient is nontoxic and in no acute distress. HEAD: Atraumatic, normocephalic. EYES: Pupils equal round and reactive to light, extraocular movements intact, sclera anicteric, conjunctiva are normal. Eyelids were unremarkable. ENT: TMs normal, nares patent, oropharynx clear without exudates. Moist mucous membranes. Patient has dental fractures to teeth #2, #15, no visible dental abscess seen, there is some erythema surrounding the gumline. NECK: Normal range of motion, supple without lymphadenopathy or JVD. LUNGS: Unlabored respirations. Breath sounds clear to auscultation bilaterally and equal. No wheezes rales or rhonchi. HEART: Regular rate and rhythm without murmurs, rubs or gallops. ABDOMEN: Soft, nontender, normoactive bowel sounds. No guarding, no rebound. No masses appreciated. : Deferred MUSCULOSKELETAL: Normal extremities with adequate strength and normal range of motion, no pitting or edema. No clubbing or cyanosis. NEUROLOGICAL: Patient is alert and oriented x 3. Motor and sensory are also intact. Cranial nerves II through XII grossly intact. Symmetrical smile. Normal speech, normal gait. PSYCH: Normal mood, normal affect. SKIN: Warm, Dry, normal turgor, no rashes or lesions noted. Limitations: no limitations Course Vital Signs 04/17/20 04/17/20 18:30 19:47 Temperature 98.4 F 97 F L Pulse Rate 77 77 Respiratory 18 22 Rate Blood Pressure 150/77 129/79 O2 Sat by Pulse 98 97 Oximetry Medical Decision Making - Medical Decision Making Patient is a 34-year-old male here for right-sided dental pain, increasing headache over the past 3 days. No fever or chills, no neck pain. Vital signs are stable. There is no visible dental abscess seen, there are dental caries and fractured teeth, some mild gum line erythema. I will start patient on penicillin and give him pain control here. He is in agreement with this plan of care. He'll follow up with his dentist. He is stable for discharge. Disposition Clinical Impression: Fracture of tooth, Toothache, Headache Disposition: HOME SELF-CARE Condition: Stable Instructions (If sedation given, give patient instructions): Toothache (ED) Additional Instructions: Please return to the Emergency Department if symptoms worsen or any other concerns. Take antibiotics as prescribed. Alternate between Tylenol and Motrin for discomfort. May take Tylenol with codeine for severe pain. Follow-up with your dentist. Prescriptions: Penicillin V Potassium [Pen Vee K] 500 mg PO QID 7 Days #28 tablet Is patient prescribed a controlled substance at d/c from ED?: No Referrals: None,Stated [Primary Care Provider] - 1-2 days
[2020-04-17 19:49] VITALS: BP 129/79; RESP 22; TEMP 97
== END 2020-04-17 19:49 | disposition home or self-care (01) ==
LOC: EC 18:23
DX: K02.9 Dental caries, unspecified (principal); K03.81 Cracked tooth; Z86.14 Personal history of Methicillin resistant Staphylococcus aureus infection
CPT/HCPCS: 99283